=== PATIENT | male | born 2000 | race Caucasian/White ===

== ENCOUNTER 2024-03-03 22:05 | Emergency (ER) | payer BC ==
[~2024-03-03] VITALS: Ht 170.2 cm; Wt 84.0 kg
[2024-03-03 22:25] VITALS: O2SAT 99
[2024-03-03 23:13] VITALS: BP 124/72; PULSE 66; RESP 16; TEMP 98.2; O2SAT 99
[2024-03-03] MEDS ORDERED: IBUPROFEN 400MG TABLET PO ONE (23:30)
[2024-03-04 00:47] LABS: BASOPHILS % 0.7 % (0.0-2.0); EOSINOPHILS % 1.6 % (0.0-5.0); HEMATOCRIT. 45.1 % (42.0-52.0); HEMOGLOBIN. 15.7 g/dL (14.0-18.0); MEAN CORPUSCULAR HEMOGLOBIN 31.3 pg (28.0-32.0); MEAN CORPUSCULAR HGB CONC 34.9 g/dL (31.0-37.0); MEAN CORPUSCULAR VOLUME 89.7 fL (80.0-94.0); MEAN PLATELET VOLUME 8.1 fl (7.4-10.4); MONOCYTES % 11.8 % (2.0-8.0); NEUTROPHILS % 54.9 % (40.0-76.0); PLATELET 168 x1000/uL (130-400); RED BLOOD CELL COUNT 5.03 mill/uL (4.7-6.1); RED CELL DISTRIBUTION WIDTH 12.9 % (11.6-14.6); WHITE BLOOD COUNT 5.1 x1000/uL (4.5-11.0)
[2024-03-04 00:59] LABS: CHLORIDE 107 mEq/L (98-107); POTASSIUM 3.7 mEq/L (3.5-5.1); SODIUM 141 mEq/L (136-145)
[2024-03-04 01:00] LABS: CARBON DIOXIDE 27 mEq/L (21-32)
[2024-03-04 01:01] LABS: CALCIUM 9.8 mg/dL (8.7-10.4)
[2024-03-04 01:02] LABS: D-DIMER 0.26 mg/L FEU (<0.50); INR 0.9; PARTIAL THROMBOPLASTIN TIME 24.4 sec (23.4-31.0); PROTHROMBIN TIME 10.6 sec (9.6-11.0)
[2024-03-04 01:05] LABS: CREATININE 1.1 mg/dL (0.6-1.3); GLUCOSE 86 mg/dL (70-105)
[2024-03-04 01:06] LABS: UREA NITROGEN BLOOD 12 mg/dL (9-23)
[2024-03-04 01:13] LABS: TROPONIN I HIGH SENSITIVITY < 4 ng/L (3.0-53)
[2024-03-04] MEDS ORDERED: IBUP-2028 MT (01:15)
== END 2024-03-04 01:25 | disposition home or self-care (01) ==
LOC: ER 22:05
DX: R07.89 Other chest pain (principal)
CPT/HCPCS: 36415; 71045; 80048; 84484; 85025; 85379; 93005; 99285